=== PATIENT | male | born 1975 ===

== ENCOUNTER 2018-11-03 12:18 | Emergency (ER) | payer OTHER ==
[2018-11-03] MEDS ORDERED: Sodium Chloride 0.9% 50 ML IV ONE (12:52)
[2018-11-03] MEDS ORDERED: Iohexol 300 100 ML IJ ONE (12:52)
[2018-11-03 12:58] LABS: BASO % 0.6 % (0.0-2.0); EOS % 0.9 % (0.0-4.0); HEMOGLOBIN 14.9 g/dL (12.0-18.0); LYMPH # 2.2 K/uL (1.0-4.3); MEAN CELL VOLUME 92.5 fl (80.0-94.0); MEAN CORPUSCULAR HEMOGLOBIN 30.4 pg (27.0-31.0); MEAN CORPUSCULAR HGB CONC 32.9 g/dL (33.0-37.0); MEAN PLATELET VOLUME 7.1 fl (7.2-11.7); MONO # 0.5 K/uL (0.0-0.8); MONO % 12.1 % (0.0-10.0); NEUT # 1.6 K/uL (1.8-7.0); NEUT % 35.4 % (50.0-75.0); NRBC % 0.1 % (0.0-0.0); RBC 4.9 Mil/uL (4.40-5.90); RED CELL DISTRIBUTION WIDTH 13.6 % (11.5-14.5); WHITE BLOOD COUNT 4.4 K/uL (4.8-10.8)
[2018-11-03 13:05] LABS: ALB/GLOB RATIO 1.4 (1.0-2.1); ALBUMIN 4.9 g/dL (3.5-5.0); ALT/SGPT 58 U/L (21-72); AST/SGOT 45 U/L (17-59); BLOOD UREA NITROGEN 9 mg/dl (9-20); CALCIUM 9.8 mg/dL (8.4-10.2); GFR NON-AFRICAN AMERICAN > 60
--- NOTE | 2018-11-03 13:49 | ED PDOC ---
HPI: Abdomen Time Seen by Provider: 11/03/18 12:33 Chief Complaint (Nursing): Abdominal Pain Chief Complaint (Provider): Abdominal Pain History Per: Patient History/Exam Limitations: no limitations Onset/Duration Of Symptoms: Days (x4), Worse Since (x2 days) Current Symptoms Are (Timing): Still Present Additional Complaint(s): Patient is a 48 y/o male with a PMHx of HTN who presents to the ED for evaluation of worsening left lower quadrant abdominal pain for the past two days. Patient also reported gross blood in the toilet after a bowel movement four days ago. Patient denies any rectal pain and history of hemorrhoids. PCP: None Provided Past Medical History Reviewed: Historical Data, Nursing Documentation, Vital Signs - Medical History PMH: HTN - Surgical History Surgical History: No Surg Hx - Family History Family History: States: No Known Family Hx - Home Medications Home Medications: Ambulatory Orders Medication Instructions Recorded Ibuprofen [Motrin] 600 mg PO Q6H PRN #20 tab 09/29/14 - Allergies Allergies/Adverse Reactions: Allergies Allergy/AdvReac Type Severity Reaction Status Date / Time No Known Allergies Allergy Verified 09/29/14 12:48 Review of Systems ROS Statement: Except As Marked, All Systems Reviewed And Found Negative Gastrointestinal: Positive for: Abdominal Pain (left lower quadrant), Other (gross blood per rectum). Negative for: Nausea, Diarrhea, Rectal Pain Physical Exam - Reviewed Nursing Documentation Reviewed: Yes Vital Signs Reviewed: Yes - Physical Exam Appears: Positive for: No Acute Distress Head Exam: Positive for: ATRAUMATIC, NORMAL INSPECTION, NORMOCEPHALIC Skin: Positive for: Normal Color, Warm, DRY Eye Exam: Positive for: EOMI, Normal appearance, PERRL Neck: Positive for: Normal, Painless ROM, Supple Cardiovascular/Chest: Positive for: Regular Rate, Rhythm. Negative for: Murmur Respiratory: Positive for: Normal Breath Sounds. Negative for: Respiratory Distress Gastrointestinal/Abdominal: Positive for: Soft, Tenderness (left lower quadrant) Back: Positive for: Normal Inspection. Negative for: L CVA Tenderness, R CVA Tenderness, Vertebral Tenderness Rectal: Positive for: Deferred (until dot compliance manager available) Extremity: Positive for: Normal ROM. Negative for: Pedal Edema, Deformity Neurological/Psych: Positive for: Alert, Oriented (x3) - Laboratory Results Result Diagrams: 11/03/18 12:45 11/03/18 12:45 Lab Results: Total Bilirubin 0.7 mg/dl (0.2-1.3) 11/03/18 12:45 AST 45 U/L (17-59) 11/03/18 12:45 ALT 58 U/L (21-72) 11/03/18 12:45 Alkaline Phosphatase 88 U/L (38-126) 11/03/18 12:45 Total Protein 8.5 G/DL (6.3-8.2) H 11/03/18 12:45 Albumin 4.9 g/dL (3.5-5.0) 11/03/18 12:45 Globulin 3.6 gm/dL (2.2-3.9) 11/03/18 12:45 Albumin/Globulin Ratio 1.4 (1.0-2.1) 11/03/18 12:45 Medical Decision Making Medical Decision Making: Time: 1234 Impression: Left Lower Quadrant Abdominal Pain and Gross Blood Per Rectum Plan: CT Abd & Pelvis IV Contrast CMP CBC (with differential) Occult Blood, Stool, ER Time: 1400 Performed with WipitJose Daniel, present as dot compliance manager. No blood, palpable external/internal hemorrhoids, swelling, or fissures. Time: 1515 FINDINGS: LOWER THORAX: Unremarkable. LIVER: Hepatic steatosis. No gross lesion or ductal dilatation. GALLBLADDER AND BILE DUCTS: Unremarkable. PANCREAS: Unremarkable. No gross lesion or ductal dilatation. SPLEEN: Unremarkable. ADRENALS: Unremarkable. No mass. KIDNEYS AND URETERS: Unremarkable. No hydronephrosis. No solid mass. VASCULATURE: Unremarkable. No aortic aneurysm. No aortic atherosclerotic calcification or mural plaque present. BOWEL: Unremarkable. No obstruction. No gross mural thickening. APPENDIX: Normal appendix. PERITONEUM: Bilateral fat containing inguinal hernias, right larger than left no free fluid. No free air. LYMPH NODES: Unremarkable. No enlarged lymph nodes. BLADDER: Unremarkable. REPRODUCTIVE: Unremarkable. BONES: No acute fracture. OTHER FINDINGS: None. IMPRESSION: No acute abdominal pelvic pathology. Time: [address] unremarkable. Advised to followup with Computer Operations Analyst. Patient stable for discharge. Scribe Attestation: Documented by Logan Jc, acting as a scribe Matti Osuna MD. Provider Scribe Attestation: All medical record entries made by the Scribe were at my direction and persona lly dictated by me. I have reviewed the chart and agree that the record accurately reflects my personal performance of the history, physical exam, medical decision making, and the department course for this patient. I have also personally directed, reviewed, and agree with the discharge instructions and disposition. Disposition - Clinical Impression Clinical Impression: Abdominal pain - Disposition Referrals: Chris Linton MD [Staff Provider] - Disposition Time: 15:35 Condition: STABLE Instructions: Acute Abdomen (Belly Pain), Adult (DC) Forms: [employer] (K[place]akh) Print Language: DJIBOUTIAN
[2018-11-03 14:54] VITALS: BP 142/87; PULSE 80; RESP 16; TEMP 98.9; O2SAT 99
--- NOTE | 2018-11-03 15:19 | CT ---
Date of service: 11/03/2018 PROCEDURE: CT Abdomen and Pelvis with contrast HISTORY: LLQ pain and blood per rectum COMPARISON: None. TECHNIQUE: Contrast dose: 98 mL Omnipaque 300 Radiation dose: Total exam DLP = 976.98 mGy-cm. This CT exam was performed using one or more of the following dose reduction techniques: Automated exposure control, adjustment of the mA and/or kV according to patient size, and/or use of iterative reconstruction technique. FINDINGS: LOWER THORAX: Unremarkable. LIVER: Hepatic steatosis. No gross lesion or ductal dilatation. GALLBLADDER AND BILE DUCTS: Unremarkable. PANCREAS: Unremarkable. No gross lesion or ductal dilatation. SPLEEN: Unremarkable. ADRENALS: Unremarkable. No mass. KIDNEYS AND URETERS: Unremarkable. No hydronephrosis. No solid mass. VASCULATURE: Unremarkable. No aortic aneurysm. No aortic atherosclerotic calcification or mural plaque present. BOWEL: Unremarkable. No obstruction. No gross mural thickening. APPENDIX: Normal appendix. PERITONEUM: Bilateral fat containing inguinal hernias, right larger than left no free fluid. No free air. LYMPH NODES: Unremarkable. No enlarged lymph nodes. BLADDER: Unremarkable. REPRODUCTIVE: Unremarkable. BONES: No acute fracture. OTHER FINDINGS: None. IMPRESSION: No acute abdominal pelvic pathology.
== END 2018-11-03 16:05 | disposition home or self-care (01) ==
LOC: H.ER 12:18
DX: R10.32 Left lower quadrant pain (principal)
CPT/HCPCS: 74177; 80053; 85025; 99283; Q9967